=== PATIENT | male | born 2000 | race Caucasian/White ===

== ENCOUNTER 2022-12-18 21:08 | Emergency (ER) | payer OTHER, SELFPAY ==
[2022-12-18 21:10] VITALS: BP 136/88; PULSE 90; RESP 18; TEMP 36.9; O2SAT 100; BMI 23.7
[2022-12-18 21:14] VITALS: O2SAT 99
--- NOTE | 2022-12-18 21:32 | EKG12_ITS ---
Test Reason : Blood Pressure : / mmHG Vent. Rate : 076 BPM Atrial Rate : 076 BPM P-R Int : 198 ms QRS Dur : 102 ms QT Int : 374 ms P-R-T Axes : 061 064 036 degrees QTc Int : 420 ms Normal sinus rhythm Normal ECG Confirmed by ALFONSO COREAS, MEKHI ([id number]), publication editor ASAEL KENDRICK ([id number]) on 12/20/2022 10:48:52 AM Referred By: Confirmed By:MEKHI HAMILTON MD
--- NOTE | 2022-12-18 21:36 | EDS_ITS ---
HPI History of Present Illness Chief Complaint: Poisoning Detail of Chief Complaint: 22-year-old with car monoxide exposure. Informant: patient and spouse/S.O. Onset/Context/Timing Onset: Today and Hours Context: Gradual Onset Timing: Continuous Current Severity: Mild Maximum Severity: Mild Narrative Narrative: 22-year-old male no seen past medical or surgical history. Currently no medications. 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 It was gas powered. He was not feeling well when in the home and a syncopal episode. Squad was called and elevated carbon monoxide level was brought into the emergency department. They did start him on oxygen prior to arrival. He is feeling much better. History obtained both from the patient and his . Prior similar symptoms: No Recent Illness/Hospitalization: No PFSH PFSH Medical History no medical history no medical history Home Medications NK 12/18/22 [History Last Taken Unknown] Allergy/AdvReac Type Severity Reaction Status Date / Time No Known Allergies Allergy Verified 12/18/22 21:10 Surgical History no surgical history no surgical history Social History Smoking Status: Current every day smoker tobacco type: smokeless tobacco ROS ROS ED ROS Narrative Denies recent illness. Mild headache tonight. Review of Systems ROS Unobtainable: Denies due to encephalopathy Constitutional Constitutional ED: Denies chills or fever(s) Eyes Eyes: Denies blurry vision ENT ENT ED: Denies ear pain Cardiovascular Cardiovascular: Denies chest pain Respiratory/Chest Respiratory/Chest: Denies cough or dyspnea Gastrointestinal Gastrointestinal: Denies abdominal pain Genitourinary Genitourinary ED: Denies dysuria or hematuria Musculoskeletal Musculoskeletal: Denies arthralgias Integumentary Denies abscess Neurologic Neurologic: Reports headache(s) Psychiatric Psychiatric: Denies anxiety Endocrine Endocrinology: Denies cold intolerance Hematologic/Lymphatic Hematologic/Lymphatic: Reports none Allergic/Immunologic Allergic/Immunologic ED: Denies mouth swelling or tongue swelling EXAM Physical Exam Narrative Exam Narrative: 22-year-old male no acute distress. Vital signs stable afebrile. Oxygen mask on. H EENT exam unremarkable atraumatic. Pupils round reactive light. Neck nontender. Lungs clear. Heart regular rhythm rate about 90 no murmur. Abdomen soft nontender. Normal bowel sounds no peritoneal signs. Moving all 4 extremities. 5 out of 5 speed belt sander tender strength. Dorsi plantarflexion intact. NIH 0. Awake alert. Const Vital Signs: 12/18/22 21:10 12/18/22 21:14 12/18/22 21:17 Temperature 98.4 F Temperature Source Oral Pulse Rate 90 Respiratory Rate 18 Respiratory Effort Normal Non-Labored Respiratory Pattern Normal Blood Pressure 136/88 H Blood Pressure Mean 104 Pulse Ox 100 99 Oxygen Delivery Method Nasal Cannula Non-Rebreather Oxygen Flow Rate (L/min) 2 15 12/18/22 21:39 12/18/22 21:55 12/18/22 22:25 Temperature Temperature Source Pulse Rate 84 91 Respiratory Rate 17 Respiratory Effort Respiratory Pattern Blood Pressure 126/79 H 122/83 H Blood Pressure Mean 94 96 Pulse Ox 98 98 Oxygen Delivery Method Non-Rebreather Non-Rebreather Room Air Oxygen Flow Rate (L/min) 15 12/18/22 22:48 Temperature Temperature Source Pulse Rate 78 Respiratory Rate 15 Respiratory Effort Respiratory Pattern Blood Pressure 125/83 H Blood Pressure Mean 97 Pulse Ox 100 Oxygen Delivery Method Room Air Oxygen Flow Rate (L/min) Positive well nourished and well developed; Negative for obese, cachectic, contractures or unkempt General Appearance ED: well developed and NAD; Negative for unkempt, cachectic, contractures, cyanotic, diaphoretic or pallor Nutritional Appearance: Negative for cachectic or obese HEENT Reports moist mucous membranes; Denies dry mucous membranes Negative for trauma or tenderness Mouth ED: No dry mucous membranes Mouth: No dry mucous membranes Eyes PERRL and EOMs intact bilaterally General Eye ED: Negative for pale conjunctiva or scleral icterus Neck no lymphadenopathy, supple and no JVD General: Negative for tenderness Lymph Lymphatic: Negative for other Chest Wall inspection of chest normal and palpation of chest normal Chest: Negative for other Resp normal respiratory effort and clear to auscultation bilaterally Effort and Inspection: Negative for retractions Auscultation: Negative for rales, rhonchi or wheezes Cardio regular rate, regular rhythm, S1 normal heart sound, S2 normal heart sound and no murmurs GI normal to inspection, nondistended, normoactive bowel sounds, non-tender, non- distended and no masses Inspection: Negative for abdominal distention Auscultation: normoactive bowel sounds Palpation: soft; Negative for tender or guarding Back/Spine no CVA tenderness General Back: Negative for CVA tenderness Cervical Spine: Negative for cervical spine tenderness Thoracic Spine / Upper Back: Negative for thoracic spinal tenderness or paraspinal muscle tenderness Lumbar Spine / Lower Back: Negative for lumbar spinal tenderness Extremity normal to inspection General Extremety ED: Negative for edema or tenderness General Extremity: Negative for edema Neuro oriented x3, CN's II-XII intact bilaterally and no sensory deficits noted Sensorium / Orientation: alert; Negative for orientation impaired, lethargic or stuporous Motor Exam: strength 5/5 throughout; Negative for general weakness or strength abnormal Psych mental status grossly normal Appearance: Negative for unkempt Attitude: No agitated Mood & Affect: Negative for depressed, anxious or tearful Skin no rashes or lesions noted, no wounds and skin turgor normal General Skin Exam: elasticity normal; Negative for jaundice or pallor Lesions: No lesion noted Rashes: No rashes noted Trauma: Negative for abrasion Wounds: Negative for wounds noted MDM MDM MDM Narrative Medical decision making narrative: 22-year-old male with elevated carbon oxide level from CO exposure due to a gasoline powered engine in an enclosed space. Exam is benign. Per squad his initial CO level was 24. He did syncopal episode per his and EKG will be obtained. Otherwise exam is normal. We will also check a CO level. He is improving with the oxygen that the squad has had him on which will be continued. Repeat exam patient is doing well at 10:58 PM. His carbon monoxide level continues to improve.. He will be watched another half an hour discharged home. 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 This is not connected to the house per his . No one else had symptoms. Lab Data Attestation: I reviewed the patient's lab results. Lab results narrative: Carboxyhemoglobin level equals 15. On repeat exam at 10:50 PM his CO level by the monitor was 13. It continues to improve. He is feeling well. ABG Data ABG results: ABG 12/18/22 21:53 VBG Carboxyhemoglobin 15.0 H Rhythm Strip Rhythm Strip: Sinus Rhythm Rate: 76 Ectopy: None EKG Initial EKG: Attestation: I personally reviewed and interpreted this EKG as follows: Interpretation: Sinus Rhythm and No Acute Injury Pattern Comments: Normal sinus rhythm rate of 76 no acute signs of VT nor ischemia nor dysrhythmia. No old EKG available for comparison. Prior EKG tracings: not available for review Prior: No Prior Discharge Plan Triage Chief Complaint: Poisoning ED Provider: Marc Willett Dx/Rx/DC Orders Clinical Impression: Accidental poisoning by carbon monoxide Instructions: ED Carbon Monoxide Poisoning Prescriptions: No Action NK Primary Care Provider: Gregg English Referrals: Gregg English, [Primary Care Provider] - As Needed Activity Restrictions/Additional Instructions: Event only now the garage that he was working in very well. Anytime you are working in a closed environment yet to keep a well ventilated if there is machinery and they are running on gas power you can get carbon monoxide poisoning like he did. Plenty of fluids and rest. Follow-up with your doctor as needed. Return if worse. Disposition Disposition: Home, Self Care
[2022-12-18 21:55] VITALS: BP 126/79; PULSE 84; RESP 17; O2SAT 98
[2022-12-18 22:25] VITALS: BP 122/83; PULSE 91; O2SAT 98
[2022-12-18 22:48] VITALS: BP 125/83; PULSE 78; RESP 15; O2SAT 100
[2022-12-18 22:56] VITALS: O2SAT 99
== END 2022-12-18 22:58 | disposition home or self-care (01) ==
PROVIDERS: Emergency Provider Emergency Medicine; PCP Family Medicine; Visit Provider Emergency Medicine
DX: R55 Syncope and collapse (principal); T58.01XA Toxic effect of carbon monoxide from motor vehicle exhaust, accidental (unintentional), initial encounter
CPT/HCPCS: 82375; 93005; 99284; A4216